=== PATIENT | female | born 1975 | race Caucasian/White ===

== ENCOUNTER 2020-12-12 18:06 | Emergency (ER) | payer OTHER ==
[~2020-12-12] VITALS: Ht 172.7 cm; Wt 90.7 kg
--- NOTE | ~2020-12-12 | EMS ---
[facility] [address] [place] [address] EMS Patient Care Report Name: NGUYEN RECIO [id number] Admission: 12/12/20 Attend Phys: Discharge: 12/12/20 Date of : [birth year] Report #: [id number] THIS REPORT FOR: //name// Report Transmitted: 12/12/2020 22:07 EMS Care Summary [facility] [employer] [facility] Incident [phone] @ 12/12/2020 17:21 [place] [address] Patient NGUYEN RECIO Female, 45 Years 1975 Patient Address [address] [place] [address] Patient History Other, Patient Allergies Penicillin allergy, Patient Medications Cymbalta, Chief Complaint headache Disposition Transported No Lights/[place] Dis[place] Reason Sick Person Transported To [facility] Narrative [place]patched [place] [employer] [facility] for 45y/o female with headache and general weakness. Upon arrival pt. was alert and oriented and c/o headache, general weakness, and bilateral leg cramps for the past 4 to 5 hours. Pt. stated that earlier she also had N/V and diarrhea. Pt. has history [place] [address] EMS Patient Care Report Name: NGUYEN RECIO Room: [facility]#: [id number] Admission: 12/12/20 Attend Phys: Discharge: 12/12/20 Date of : [birth year] Report #: [id number] 2 years ago and states that this feels about the same. CPSS was negative. Pt. stated that she felt dehydrated and her lips felt dry. IV was started and NS administered at a slow drip to maintain stable BP. Pt. was transported to [place] for emergency services. Initial Vitals @17:38P: 90,R: 20,BP: 138/90,Pain: 8/10,GCS: 15,Glucose: 126,SpO2: 100,Revised Trauma: 12, @17:48P: 80,R: 20,BP: 150/90,Pain: 8/10,GCS: 15,SpO2: 100,Revised Trauma: 12, @18:00P: 80,R: 20,BP: 130/86,Pain: 8/10,GCS: 15,SpO2: 100,Revised Trauma: 12, Assessments @17:35MENTAL:No Abnormalities,SKIN:No Abnormalities,HEENT:Head/Face: Other,Eyes: No Abnormalities,Neck/Airway: No Abnormalities,LUNG SOUNDS:General: No Abnormalities,Left Upper: No Abnormalities,Right Upper: No Abnormalities,Left Lower: No Abnormalities,Right Lower: No Abnormalities,ABDOMEN:General: No Abnormalities,Left Upper: No Abnormalities,Right Upper: No Abnormalities,Left Lower: No Abnormalities,Right Lower: No Abnormalities,PELVIS//GI:No Abnormalities,EXTREMITIES:Left Leg: Other,Right Leg: Other,Left Arm: No Abnormalities,Right Arm: No Abnormalities,PULSE:Pedal: 2+ Normal,Radial: 2+ Normal,NEURO:Other, Impression Headache Procedures @17:44Normal Saline (.9% NaCl) 100cc (20 ga) Site: Hand-LeftResponse: UnchangedSucceeded Timeline 17:21,Call Received 17:21,Dispatched 17:23,En Route 17:34,Initial Responder On Scene 17:34,On Scene 17:35,At Patient 17:38,BP: 138/90 M,PULSE: 90,RR: 20 R,SPO2: 100 Ox,ETCO2: ,B,PAIN: 8,GCS: 15, 17:44,Depart Scene 17:44,Normal Saline (.9% NaCl) 100cc 20 ga Site: Hand-Left,Response: UnchangedSucceeded, 17:48,BP: 150/90 M,PULSE: 80,RR: 20 R,SPO2: 100 Ox,ETCO2: ,BG: ,PAIN: 8,GCS: 15, 18:00,BP: 130/86 M,PULSE: 80,RR: 20 R,SPO2: 100 Ox,ETCO2: ,BG: ,PAIN: 8,GCS: 15, 18:03,[place] [address] EMS Patient Care Report Name: NGUYEN RECIO Room: [facility]#: [id number] Admission: 12/12/20 Attend Phys: Discharge: 12/12/20 Date of : [birth year] Report #: [id number] 18:05,Transfer Patient 18:20,Call Closed 18:20,In District Disclaimer v1.1 Copyright 2020 [employer] This EMS Care Summary contains data elements from the applicable legal record (which may be displayed differently). It is designed to provide pertinent information for the following purposes: continuity of care, clinical quality, and state data reporting. The complete legal record is available to ED staff and administrators of the receiving hospital in [employer]'s Patient Tracker. All data is provided "as is."
[~2020-12-12 18:06] MED LIST: ALOE VERA237 ML PO; ATIVAN1 MG PO; CRANBERRY400 MG; LEXAPRO 10 MG T10 M2; MACRODANTIN50 M1; MACRODANTIN50 MG PO; MELATONIN1 MG PO; PRISTIQ100 MG; VENTOLIN17 GM INH; VITAMIN B12-FO1 EAC1 PO; VITAMIN D32000 UNIT PO; XANAX 0.25 MG0.25 MG PO; ZPAK PO; [UNRECOGNIZED DRUG - OTHER]
[2020-12-12] MEDS ORDERED: CYMBALTA20 MG PO (18:10)
[2020-12-12 18:52] LABS: ABSOLUTE BASOPHILS 0.1 thou/uL (0.0-0.2); ABSOLUTE EOSINOPHILS 0.2 thou/uL (0.0-0.7); ABSOLUTE LYMPHOCYTES 2.9 thou/uL (0.8-5.3); ABSOLUTE MONOCYTES 0.5 thou/uL (0.0-1.2); ABSOLUTE NEUTROPHILS 4.7 thou/uL (1.6-8.1); BASOPHILS 0.7 %; EOSINOPHILS 1.9 %; HEMOGLOBIN 13.8 gm/dL (12.0-15.0); MCHC 32.9 g/dL (28.0-37.0); MCV 97.3 fL (80.0-100.0); MONOCYTES 6.1 %; NUCLEATED RBCS 0 /100WBC; PLATELET COUNT* 316 thou/uL (150-400); POLYS 56.3 %; RBC 4.32 mil/uL (4.20-5.00); RDW-CV 12.5 % (10.5-14.5); WBC 8.3 thou/uL (4.0-11.0)
[2020-12-12 19:00] LABS: CALCIUM 9.4 mg/dL (8.5-10.1)
[2020-12-12 19:02] LABS: URINE BILIRUBIN NEGATIVE (Negative); URINE BLOOD NEGATIVE (Negative); URINE CLARITY CLEAR; URINE COLOR YELLOW; URINE GLUCOSE-RANDOM NEGATIVE (Negative); URINE KETONES NEGATIVE (Negative); URINE LEUKOCYTES-REFLEX NEGATIVE (Negative); URINE NITRITE-REFLEX NEGATIVE (Negative); URINE PROTEIN NEGATIVE (Negative); URINE UROBILINOGEN 0.2 E.U./dl (0.2-1.0)
[2020-12-12 19:04] LABS: TOTAL BILIRUBIN 0.2 mg/dL (<0.1-1.0); TOTAL PROTEIN 7.8 g/dL (6.4-8.2)
[2020-12-12 21:15] VITALS: BP 117/87
--- NOTE | 2020-12-13 12:15 | EKG ---
[place] [address] ELECTROCARDIOGRAM REPORT Name: NGUYEN RECIO Room: 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 /EPI
== END 2020-12-12 21:16 | disposition home or self-care (01) ==
LOC: M.ERS 18:06
PROVIDERS: Nurse Practitioner Family
DX: G43.409 Hemiplegic migraine, not intractable, without status migrainosus (principal); K21.9 Gastro-esophageal reflux disease without esophagitis; Z88.0 Allergy status to penicillin; Z91.040 Latex allergy status; Z90.710 Acquired absence of both cervix and uterus